=== PATIENT | male | born 1940 | race American Indian/Alaskan Native ===

== ENCOUNTER 2019-01-21 05:13 | Day surgery (SDC) | payer MEDICARE, OTHER ==
[2019-01-21] MEDS ORDERED: MIDAZOLAM SYRUP 2 MG/ML (10ML) UD ONE ×2 (12:15→12:20)
[2019-01-21] MEDS ORDERED: TOBRAMYCIN SULF 0.3 % OPHT SOL 1 DROP LEFT_EYE ONE (12:24)
[2019-01-21] MEDS ORDERED: PROPARACAINE 0.5% OPHTH SOL 15 ML BTTL LEFT_EYE ONE (12:24)
[2019-01-21] MEDS ORDERED: BRIMONIDINE 0.2% OPHTH DROPS LEFT_EYE ONE (12:24)
[2019-01-21] MEDS ORDERED: DEXAMETHASONE 0.1% OPHTH SOL 1 DROP LEFT_EYE ONE (12:24)
[2019-01-21] MEDS ORDERED: MOXIFLOXACIN HCL (OPHTH) 1 DROP DROPS LEFT_EYE ONE (12:42)
[2019-01-21] MEDS ORDERED: LIDOCAINE 1% 2 ML VIAL INJ ONE (12:42)
== END 2019-01-21 14:15 | disposition home or self-care (01) ==
LOC: AMB 05:13
PROVIDERS: ATTEND Ophthalmology
DX: E11.36 Type 2 diabetes mellitus with diabetic cataract (principal); H25.11 Age-related nuclear cataract, right eye; I10 Essential (primary) hypertension; Z79.899 Other long term (current) drug therapy

== ENCOUNTER 2019-02-11 05:27 | Day surgery (SDC) | payer MEDICARE, OTHER ==
[2019-02-11] MEDS: PROPARACAINE 0.5% OPHTH SOL 15 ML BTTL RIGHT_EYE ONE ×2 (08:59→09:22)
[2019-02-11] MEDS: DEXAMETHASONE 0.1% OPHTH SOL 1 DROP RIGHT_EYE ONE ×2 (09:00→09:22)
[2019-02-11] MEDS: LIDOCAINE 1% 2 ML VIAL INJ ONE ×2 (09:00→09:22)
[2019-02-11] MEDS: MOXIFLOXACIN HCL (OPHTH) 1 DROP DROPS RIGHT_EYE ONE ×2 (09:01→09:22)
[2019-02-11] MEDS: TOBRAMYCIN SULF 0.3 % OPHT SOL 1 DROP RIGHT_EYE ONE ×2 (09:01→09:22)
[2019-02-11] MEDS: BRIMONIDINE 0.2% OPHTH DROPS RIGHT_EYE ONE ×2 (09:01→09:22)
[2019-02-11] MEDS ORDERED: MIDAZOLAM INJ 2 MG/2 ML VIAL ONE (09:09)
== END 2019-02-11 10:25 | disposition home or self-care (01) ==
LOC: AMB 05:27
PROVIDERS: ATTEND Ophthalmology
DX: E11.36 Type 2 diabetes mellitus with diabetic cataract (principal); H25.12 Age-related nuclear cataract, left eye; I10 Essential (primary) hypertension; Z79.899 Other long term (current) drug therapy
CPT/HCPCS: 00142; 66984; J2250